=== PATIENT | female | born 1950 | race Hispanic/Latino ===

== ENCOUNTER 2018-06-23 10:16 | Outpatient (CLI) | payer MEDICARE | END 2018-06-23 10:17 | disposition home or self-care (01) | LOC: RAD 10:16 | DX: R10.13 Epigastric pain (principal) ==

== ENCOUNTER 2018-07-01 09:19 | Day surgery (SDC) | payer MEDICARE ==
[2015-12-02 13:16] VITALS: BMI 40.3
[2018-07-01] MEDS ORDERED: Propofol 10 mg/ml Inj (20 ML) ONE (11:05)
[2018-07-01] MEDS ORDERED: Sodium Chloride 0.9% 1,000 ML IV SCH (11:45)
[2018-07-01 13:23] VITALS: BP 127/60; PULSE 76; RESP 18; TEMP 97.5; O2SAT 99
== END 2018-07-01 13:17 | disposition home or self-care (01) ==
LOC: ENDO 09:19
PROVIDERS: ATTEND Internal Medicine Gastroenterology
DX: K29.40 Chronic atrophic gastritis without bleeding (principal); K31.9 Disease of stomach and duodenum, unspecified; I10 Essential (primary) hypertension; E11.9 Type 2 diabetes mellitus without complications; E03.9 Hypothyroidism, unspecified
CPT/HCPCS: 43239; 82948; 88305; 88342; J2001; J2704; J7030; J7040